=== PATIENT | female | born 1990 | race African-American/Black ===

== ENCOUNTER 2024-06-10 11:51 | Observation (INO) ==
--- NOTE | 2024-06-10 12:13 | Emergency Department Note ---
HPI - Abdominal Pain General Chief Complaint: Abdominal Pain Stated Complaint: Stomach pains and vomiting Time Seen by Provider: 06/10/24 12:13 Source: patient Mode of arrival: walk-in Limitations: no limitations History of Present Illness HPI narrative: This is a 33 year old female patient that presents to the ER with c/o upper abdominal pain with N/V/D today. Patient denies any chest pain, back pain, fever, chills, numbness, tingling, or weakness MD elicited complaint: abdominal pain Pertinent past history: none Onset (ago): hour(s) (2) Pain Consistency: constant Location: RUQ Severity: mild Quality: cramping Radiation: none Migration to: no migration Exacerbating factors: nothing Relieving factors: nothing Associated symptoms: nausea, vomiting and diarrhea Related Data Home Medications Medication Instructions Recorded Confirmed amlodipine 10 mg tablet 10 mg PO DAILY 06/10/24 06/10/24 bupropion HCl 150 mg 24 hr tablet, 150 mg PO DAILY 06/10/24 06/10/24 extended release cyclobenzaprine 5 mg tablet 5 mg PO BID 06/10/24 06/10/24 diclofenac sodium 1 % topical gel 2 g topical DAILY 06/10/24 06/10/24 diclofenac sodium 75 mg 75 mg PO Q12H 06/10/24 06/10/24 tablet,delayed release gabapentin 300 mg capsule 300 mg PO TID 06/10/24 06/10/24 hydrochlorothiazide 25 mg tablet 25 mg PO DAILY 06/10/24 06/10/24 hydroxyzine HCl 25 mg tablet 25 mg PO TID 06/10/24 06/10/24 pantoprazole 40 mg tablet,delayed 40 mg PO DAILY 06/10/24 06/10/24 release venlafaxine 75 mg capsule,extended 75 mg PO DAILY 06/10/24 06/10/24 release 24 hr Allergies Allergy/AdvReac Type Severity Reaction Status Date / Time No Known Drug Allergies Allergy Verified 06/10/24 12:09 Review of Systems Status of ROS 10 or more systems reviewed and unremark able except as noted in history and below Constitutional Denies: fever, chills, change in weight, fatigue or malaise Eyes Denies: change in vision, blurry vision, blind spots or light sensitivity Ears, nose, mouth, and throat Denies: throat pain, neck pain, throat swelling, difficulty swallowing or hoarseness Cardiovascular Denies: chest pain, palpitations, edema or swelling of feet/ankles Respiratory Denies: shortness of breath, cough, wheezing, stridor or pain on inspiration Gastrointestinal Reports: abdominal pain, nausea, vomiting and diarrhea; Denies: coffee grounds in vomit, heartburn or difficulty swallowing Genitourinary Denies: painful urination, urinary frequency, urinary urgency or urinary incontinence Musculoskeletal Denies: back pain, neck pain, extremity pain, extremity swelling or joint pain Integumentary/Breast Denies: rash, itching, redness, skin pain, skin tenderness or skin swelling Neurological Denies: headache, numbness in extremities, weakness in extremities or lack of coordination Psychiatric Denies: anxiety, mood swings, panic attacks, change in sleep pattern or hopelessness Endocrine Denies: excessive urination, excessive thirst or fatigue Hematologic/Lymphatic Denies: easy bruising or easy bleeding Allergic/Immunologic Denies: hives, throat swelling, tongue swelling or facial swelling [facility] Medical History (Updated 06/10/24 @ 12:14 by La Laguna RN) Hypertension Surgical History (Updated 06/10/24 @ 12:14 by La Laguna RN) History of hernia repair Social History Smoking status: current every day smoker Do you use any of these nicotine containing products: vaping products Within the past year, how often did you have a drink containing alcohol: never Within the past year, how often did you have six or more drinks on one occasion: never Score interpretation: A score less than 3 is consistent with normal alcohol consumption. Exam Constitutional: normal general appearance and no apparent distress Vital Signs - 24 hr 06/10/24 11:57 Temperature 98.6 F Pulse Rate 101 H Respiratory Rate 22 Blood Pressure 169/101 Pulse Oximetry 100 Oxygen Delivery Me thod Room Air HENMT: normocephalic, head/scalp atraumatic, hearing grossly normal bilaterally and external ears normal Eyes: PERRL, EOMs intact bilaterally, conjunctivae normal and no scleral icterus Neck/C-Spine: visual inspection normal and trachea midline Lymph: no lymphadenopathy noted Chest: inspection of chest normal Respiratory: breath sounds equal bilaterally, normal respiratory effort, clear to auscultation bilaterally, no wheezes, no rales, no retractions and no use of accessory muscles Cardiovascular: normal heart rate noted, regular rhythm noted, no gallop, no rub, no murmur, no JVD, no clicks, peripheral pulses 2+ throughout and no additional abnormal heart sounds Gastrointestinal: abdomen normal to inspection, abdomen soft to palpation, tender to palpation (mild) and (RUQ), nontender to percussion, nondistended, normoactive bowel sounds, no hepatosplenomegaly, no masses, no pulsatile mass, no ascites and no hernia Genitourinary: no CVA tenderness Back/Pelvis: spine normal to inspection Extremities: normal to inspection, normal to palpation, no tenderness, full ROM, no joint enlargement and no deformity Neurology: no movement abnormality noted, gait normal, speech normal and GCS normal Psychiatry: mental status grossly normal and oriented x3 Skin: skin color normal Course Course Hospital Course: 1350: Due to ongoing abdominal pain, pancreatitis, will admit patient to the hospital for further for evaluation and treatment, VSS, no s/s of acute distress noted Vital Signs Vital signs: Vital Signs Temperature 98.6 F 06/10/24 11:57 Pulse Rate 101 H 06/10/24 11:57 Respiratory Rate 22 06/10/24 11:57 Blood Pressure 169/101 06/10/24 11:57 Pulse Oximetry 100 06/10/24 11:57 Oxygen Delivery Method Room Air 06/10/24 11:57 Temperature 98.6 F 06/10/24 11:57 Pulse Rate 101 H 06/10/24 11:57 Respiratory Rate 22 06/10/24 11:57 Blood Pressure 169/101 06/10/24 11:57 Pulse Oximetry 100 06/10/24 11:57 Oxygen Delivery Method Room Air 06/10/24 11:57 MDM - Abdominal Pain Differential Diagnosis Differential diagnosis: Likely abdominal pain Medical Records Attestation: I reviewed the patient's medical records. Lab Data Attestation: I reviewed the patient's lab results. Labs: Lab Results 06/10/24 06/10/24 Range/Units 11:50 12:15 WBC 7.0 (4.3-9.3) K/uL RBC 3.6 L (4.00-5.50) M/uL Hgb 13.1 (12.5-15.8) gm/dL Hct 38.1 (35.9-46.7) % MCV 106.5 H (81.0-93.7) fl MCH 36.7 H (27.6-32.2) pg MCHC 34.4 (33.1-35.3) g/dl RDW 17.9 H (11.4-14.2) % Plt Count 298 (152-353) K/uL MPV 6.7 L (6.9-10.8) fl Gran % 63.5 (47.8-71.3) % Lymph % (Auto) 28.8 (20.0-43.0) % [place] % (Auto) 5.9 (3.6-9.8) % Eos % (Auto) 1.4 (0.4-2.8) % Baso % (Auto) 0.4 (0.1-0.85) Lymph # (Auto) 2.0 (1.1-3.1) [place] # (Auto) 0.4 L (1.1-3.1) Eos # (Auto) 0.1 (0.0-0.2) Baso # (Auto) 0.0 (0.0-0.1) Absolute Gran (auto) 4.4 (2.3-6.0) Sodium 140 (136-145) mmol/L Potassium 3.6 (3.6-5.2) mmol/L Chloride 103.0 (98-107) mmol/L Carbon Dioxide 28 (21-32) mmol/L Anion Gap 9.0 (4-14) mEq/L BUN 5 L (7-18) mg/dL Creatinine 0.6 (0.6-1.3) mg/dL Estimated GFR 120.7 (>59.9) Glucose 113 H (70-110) mg/dL Calcium 7.9 L (8.5-10.1) mg/dL Total Bilirubin 0.61 (0.0-1.0) mg/dL AST 89 H (15-37) U/L ALT 47 (30-65) U/L Alkaline Phosphatase 68 (50-136) U/L Total Protein 7.1 (6.4-8.2) g/dL Albumin 3.6 (3.4-5.0) g/dL Lipase 324.0 H (16.0-77.0) U/L Urine Color Yellow (STRAW/YELL.) Urine Appearance Clear (CLEAR) Ur Specific [place] 1.020 (1.001-1.035) Urine Protein Negative (NEGATIVE) Urine Glucose (UA) Normal (NORMAL) Urine Ketones Negative (NEGATIVE) Urine Occult Blood Negative (NEG - TRACE) Urine Nitrite Negative (NEGATIVE) Urine Bilirubin Negative (NEGATIVE) Urine Urobilinogen Normal (NORMAL) Ur Leukocyte Esterase Negative (NEGATIVE) Urine Test Negative (Negative) Fluid pH 6.5 (5 - 9) Imaging Data Imaging ordered: CT scan - abdomen Attestation: I have reviewed the pertinent imaging results. Discharge Plan Discharge Patient Disposition: Admitted As Observation Condition: Stable Chief Complaint: Abdominal Pain Clinical Impression: Pancreatitis Prescriptions: No Action amlodipine 10 mg tablet 10 mg PO DAILY bupropion HCl 150 mg tablet extended release 24 hr 150 mg PO DAILY cyclobenzaprine 5 mg tablet 5 mg PO BID diclofenac sodium 1 % gel 2 g TOPICAL DAILY diclofenac sodium 75 mg tablet,delayed release (DR/EC) 75 mg PO Q12H gabapentin 300 mg capsule 300 mg PO TID hydrochlorothiazide 25 mg tablet 25 mg PO DAILY hydroxyzine HCl 25 mg tablet 25 mg PO TID pantoprazole 40 mg tablet,delayed release (DR/EC) 40 mg PO DAILY venlafaxine 75 mg capsule,extended release 24hr 75 mg PO DAILY Print Language: [place]i Referrals: Provider,NO PCP [Primary Care Provider] - Time of Disposition: 13:53
[2024-06-10] MEDS: ONDANSETRON HCL/PF 4 MG/2 ML VIAL INJ STA (12:15)
[2024-06-10 12:22] LABS: Basophils%(Percent) Auto 0.4 (0.1-0.85); Eosinophils#(Absolute)Auto 0.1 (0.0-0.2); Eosinophils%(Percent) Auto 1.4 % (0.4-2.8); Granulocytes % - Auto 63.5 % (47.8-71.3); Granulocytes#(Absolute)- Auto 4.4 (2.3-6.0); Hematocrit 38.1 % (35.9-46.7); Mean Corpuscular Volume 106.5 fl (81.0-93.7); Monocytes #(Absolute)- Auto 0.4 (1.1-3.1); Monocytes %(Percent)- Auto 5.9 % (3.6-9.8); Platelet Count 298 K/uL (152-353)
[2024-06-10 12:25] LABS: Urine Appearance CLEAR (CLEAR); Urine Blood NEGATIVE (NEG - TRACE); Urine Color YELLOW (STRAW/YELL.)
[2024-06-10 12:26] LABS: PH BODY FLUID EXCP BLOOD 6.5 (5 - 9); Urine Urobilinogen Normal (NORMAL)
[2024-06-10 12:42] LABS: Potassium 3.6 mmol/L (3.6-5.2)
[2024-06-10] MEDS: KETOROLAC 30 MG/ML INJ VIAL IVP ONE (13:52)
[2024-06-10] MEDS: 0.9 % SODIUM CHLORIDE 1000 ML 1,000 ML IV SCH (14:29)
[2024-06-10] MEDS: ACETAMINOPHEN 500 MG TABLET PO PRN (16:17)
[2024-06-10] MEDS: MORPHINE SULFATE 4 MG/ML CARTRIDGE IVP PRN (19:09)
[2024-06-10] MEDS: KETOROLAC 30 MG/ML INJ VIAL IM PRN (22:13)
[2024-06-11 03:33] LABS: Basophils%(Percent) Auto 0.4 (0.1-0.85); Eosinophils#(Absolute)Auto 0.1 (0.0-0.2); Eosinophils%(Percent) Auto 0.7 % (0.4-2.8); Granulocytes % - Auto 70.7 % (47.8-71.3); Granulocytes#(Absolute)- Auto 5.6 (2.3-6.0); Hematocrit 33.7 % (35.9-46.7); Mean Corpuscular Volume 107.2 fl (81.0-93.7); Monocytes #(Absolute)- Auto 0.5 (1.1-3.1); Monocytes %(Percent)- Auto 6.4 % (3.6-9.8); Platelet Count 214 K/uL (152-353); White Blood Count 7.9 K/uL (4.3-9.3)
[2024-06-11 03:56] LABS: Potassium 3.8 mmol/L (3.6-5.2)
[2024-06-11] MEDS: GI COCKTAIL 30 ML SOLUTION PO ONE (10:45)
--- NOTE | 2024-06-11 14:35 | Internal Medicine H&P ---
Internal Medicine - H&P: HPI History of Present Illness Chief complaint: acute pancreatitis Narrative: Presented to ER from home w/ less than 12hrs of N/V/D and epigastric pain. ER work-up showed acute pancreatitis. Pt has done well overnight with improvement to the point she tolerated CLD, but not chicken. Pain is well-controlled and she reports nausea is mostly resolved. 1 episode of emesis after lunch. Review of Systems Status of ROS 10 or more systems reviewed and unremark able except as noted in history and below Constitutional Denies: fever, chills, change in weight, fatigue or malaise Eyes Denies: change in vision, blurry vision, blind spots or light sensitivity Ears, nose, mouth, and throat Denies: throat pain, neck pain, throat swelling, difficulty swallowing or hoarseness Cardiovascular Denies: chest pain, palpitations, edema, swelling of feet/ankles or shortness of breath with exertion Respiratory Denies: shortness of breath, cough, wheezing, stridor or pain on inspiration Gastrointestinal Reports: abdominal pain, nausea, vomiting and diarrhea; Denies: coffee grounds in vomit, heartburn or difficulty swallowing Genitourinary Denies: painful urination, urinary frequency, urinary urgency or urinary incontinence Musculoskeletal Denies: back pain, neck pain, extremity pain, extremity swelling or joint pain Integumentary/Breast Denies: rash, itching, redness, skin pain, skin tenderness or skin swelling Neurological Denies: headache, numbness in extremities, weakness in extremities or lack of coordination Psychiatric Denies: anxiety, mood swings, panic attacks, change in sleep pattern or hopelessness Endocrine Denies: excessive urination, excessive thirst or fatigue Hematologic/Lymphatic Denies: easy bruising or easy bleeding Allergic/Immunologic Denies: hives, throat swelling, tongue swelling, facial swelling or wheezing [facility] Medical History (Updated 06/11/24 @ 14:39 by Evan Boyer MD) Hypertension Surgical History (Updated 06/10/24 @ 12:14 by La Laguna RN) History of hernia repair Social History Smoking status: current every day smoker Do you use any of these nicotine containing products: vaping products Within the past year, how often did you have a drink containing alcohol: never Within the past year, how often did you have six or more drinks on one occasion: never Score interpretation: A score less than 3 is consistent with normal alcohol consumption. Problems where you live: no known problems Highest level of school completed/degree received: College Meds Home Medications and Allergies Home Medications Medication Instructions Recorded Confirmed Type amlodipine 10 mg tablet 10 mg PO DAILY 06/10/24 06/10/24 History bupropion HCl 150 mg 24 hr tablet, 150 mg PO DAILY 06/10/24 06/10/24 History extended release cyclobenzaprine 5 mg tablet 5 mg PO BID 06/10/24 06/10/24 History diclofenac sodium 1 % topical gel 2 g topical DAILY 06/10/24 06/10/24 History diclofenac sodium 75 mg 75 mg PO Q12H 06/10/24 06/10/24 History tablet,delayed release gabapentin 300 mg capsule 300 mg PO TID 06/10/24 06/10/24 History hydrochlorothiazide 25 mg tablet 25 mg PO DAILY 06/10/24 06/10/24 History hydroxyzine HCl 25 mg tablet 25 mg PO TID 06/10/24 06/10/24 History pantoprazole 40 mg tablet,delayed 40 mg PO DAILY 06/10/24 06/10/24 History release venlafaxine 75 mg capsule,extended 75 mg PO DAILY 06/10/24 06/10/24 History release 24 hr Allergies Allergy/AdvReac Type Severity Reaction Status Date / Time No Known Drug Allergies Allergy Verified 06/10/24 12:09 Exam Constitutional: normal general appearance, no apparent distress, no limitations and alert Vital Signs - 24 hr 06/10/24 16:00 06/10/24 19:24 06/10/24 23:21 Temperature 98.1 F 99.8 F H 99.2 F Pulse Rate [Radial ] 103 H 86 61 Respiratory Rate 16 16 17 Blood Pressure [Le ft Arm] 124/84 121/73 137/77 Pulse Oximetry 95 97 98 Oxygen Delivery Me thod Room Air Room Air Room Air 06/11/24 03:14 06/11/24 07:30 06/11/24 11:31 Temperature 98.3 F 97.7 F 98.9 F Pulse Rate [Radial ] 62 81 58 L Respiratory Rate 21 18 16 Blood Pressure [Le ft Arm] 133/78 134/84 119/87 Pulse Oximetry 100 99 98 Oxygen Delivery Me thod Room Air Room Air Room Air HENMT: normocephalic, hearing grossly normal bilaterally and external ears normal Eyes: PERRL, EOMs intact bilaterally and conjunctivae normal Neck/C-Spine: visual inspection normal and trachea midline Respiratory: breath sounds equal bilaterally, normal respiratory effort and clear to auscultation bilaterally Cardiovascular: normal heart rate noted, regular rhythm noted and no murmur Gastrointestinal: abdomen normal to inspection, abdomen soft to palpation, tender to palpation (mild) and (epigastric), nondistended and normoactive bowel sounds Genitourinary: no CVA tenderness Back/Pelvis: thoracic spine ROM normal and lumbar spine ROM normal Extremities: normal to inspection, normal to palpation, no tenderness and full ROM Neurology: switchboard troubleshooter II-XII intact, no movement abnormality noted, no focal motor deficit noted and speech normal Psychiatry: mental status grossly normal, oriented x3, thought process normal, cooperative, affect normal, psychomotor activity normal and memory normal Internal Medicine - H&P: Reslt Labs Labs: CBC WBC 7.9 K/uL (4.3-9.3) 06/11/24 03:15 RBC 3.1 M/uL (4.00-5.50) L 06/11/24 03:15 Hgb 11.4 gm/dL (12.5-15.8) L 06/11/24 03:15 Hct 33.7 % (35.9-46.7) L 06/11/24 03:15 MCV 107.2 fl (81.0-93.7) H 06/11/24 03:15 MCH 36.4 pg (27.6-32.2) H 06/11/24 03:15 MCHC 33.9 g/dl (33.1-35.3) 06/11/24 03:15 RDW 18.2 % (11.4-14.2) H 06/11/24 03:15 Plt Count 214 K/uL (152-353) 06/11/24 03:15 MPV 6.9 fl (6.9-10.8) 06/11/24 03:15 Gran % 70.7 % (47.8-71.3) 06/11/24 03:15 Lymph % (Auto) 21.8 % (20.0-43.0) 06/11/24 03:15 [place] % (Auto) 6.4 % (3.6-9.8) 06/11/24 03:15 Eos % (Auto) 0.7 % (0.4-2.8) 06/11/24 03:15 Baso % (Auto) 0.4 (0.1-0.85) 06/11/24 03:15 Lymph # (Auto) 1.7 (1.1-3.1) 06/11/24 03:15 [place] # (Auto) 0.5 (1.1-3.1) L 06/11/24 03:15 Eos # (Auto) 0.1 (0.0-0.2) 06/11/24 03:15 Baso # (Auto) 0.0 (0.0-0.1) 06/11/24 03:15 Absolute Gran (auto) 5.6 (2.3-6.0) 06/11/24 03:15 BMP Sodium 140 mmol/L (136-145) 06/11/24 03:15 Potassium 3.8 mmol/L (3.6-5.2) 06/11/24 03:15 Chloride 104.0 mmol/L (98-107) 06/11/24 03:15 Carbon Dioxide 26 mmol/L (21-32) 06/11/24 03:15 Anion Gap 10.0 mEq/L (4-14) 06/11/24 03:15 BUN 5 mg/dL (7-18) L 06/11/24 03:15 Creatinine 0.7 mg/dL (0.6-1.3) 06/11/24 03:15 Estimated GFR 116.3 (>59.9) 06/11/24 03:15 Glucose 82 mg/dL (70-110) 06/11/24 03:15 Calcium 7.5 mg/dL (8.5-10.1) L 06/11/24 03:15 Total Bilirubin 1.67 mg/dL (0.0-1.0) H 06/11/24 03:15 AST 108 U/L (15-37) H 06/11/24 03:15 ALT 44 U/L (30-65) 06/11/24 03:15 Alkaline Phosphatase 62 U/L (50-136) 06/11/24 03:15 Total Protein 6.1 g/dL (6.4-8.2) L 06/11/24 03:15 Albumin 3.1 g/dL (3.4-5.0) L 06/11/24 03:15 Liver Function Total Bilirubin 1.67 mg/dL (0.0-1.0) H 06/11/24 03:15 AST 108 U/L (15-37) H 06/11/24 03:15 ALT 44 U/L (30-65) 06/11/24 03:15 Alkaline Phosphatase 62 U/L (50-136) 06/11/24 03:15 Total Protein 6.1 g/dL (6.4-8.2) L 06/11/24 03:15 Albumin 3.1 g/dL (3.4-5.0) L 06/11/24 03:15 Urine Urine Color Yellow (STRAW/YELL.) 06/10/24 12:15 Urine Appearance Clear (CLEAR) 06/10/24 12:15 Ur Specific [place] 1.020 (1.001-1.035) 06/10/24 12:15 Urine Protein Negative (NEGATIVE) 06/10/24 12:15 Urine Glucose (UA) Normal (NORMAL) 06/10/24 12:15 Urine Ketones Negative (NEGATIVE) 06/10/24 12:15 Urine Occult Blood Negative (NEG - TRACE) 06/10/24 12:15 Urine Nitrite Negative (NEGATIVE) 06/10/24 12:15 Urine Bilirubin Negative (NEGATIVE) 06/10/24 12:15 Urine Urobilinogen Normal (NORMAL) 06/10/24 12:15 Ur Leukocyte Esterase Negative (NEGATIVE) 06/10/24 12:15 Assessment and Plan Assessment and Plan (1) Acute pancreatitis: Assessment and Plan: slow improvement. Continue current. Qualifiers: Pancreatitis type: unspecified pancreatitis type Acute pancreatitis complication: no infection or necrosis Qualified Code(s): K85.90 - Acute pancreatitis without necrosis or infection, unspecified Code(s): K85.90 - Acute pancreatitis without necrosis or infection, unspecified (2) GERD without esophagitis: Assessment and Plan: continue PPI Code(s): K21.9 - Gastro-esophageal reflux disease without esophagitis (3) Essential (primary) hypertension: Assessment and Plan: continue home meds Code(s): I10 - Essential (primary) hypertension
[2024-06-11] MEDS: ONDANSETRON HCL/PF 4 MG/2 ML VIAL INJ PRN (14:46)
[2024-06-12 05:35] LABS: Basophils%(Percent) Auto 0.5 (0.1-0.85); Eosinophils#(Absolute)Auto 0.3 (0.0-0.2); Eosinophils%(Percent) Auto 3.7 % (0.4-2.8); Granulocytes % - Auto 54.7 % (47.8-71.3); Hematocrit 33.5 % (35.9-46.7); Mean Corpuscular Volume 107.8 fl (81.0-93.7); Monocytes #(Absolute)- Auto 0.4 (1.1-3.1); Monocytes %(Percent)- Auto 6.1 % (3.6-9.8); Platelet Count 190 K/uL (152-353); White Blood Count 7.3 K/uL (4.3-9.3)
[2024-06-12 06:12] LABS: Potassium 3.6 mmol/L (3.6-5.2)
[2024-06-12 08:15] VITALS: RESP 19
[2024-06-12] MEDS: PANTOPRAZOLE SODIUM 40 MG VIAL IVP ONE (10:31)
[2024-06-12] MEDS: GABAPENTIN 300 MG CAPSULE PO SCH (11:49)
[2024-06-12] MEDS: hydrOXYzine HCL 25 MG TABLET PO SCH (11:49)
[2024-06-12] MEDS: AMLODIPINE BESYLATE 5 MG TABLET PO SCH (11:49)
[2024-06-12] MEDS: VENLAFAXINE HCL 37.5 MG CAP.ER.24H PO SCH (11:50)
[2024-06-12 12:00] VITALS: BP 144/81; PULSE 54; TEMP 98.8
--- NOTE | 2024-06-12 13:52 | Discharge Summary ---
DS: Providers Provider Date of admission: 06/10/24 14:04 Primary care physician: NO PCP Provider DS: Diagnosis Discharge Diagnosis (1) Acute pancreatitis: Assessment and plan: hydrate with caution 200 ml per hour pain control IV morphine, tylenol and toradol Qualifiers: Acute pancreatitis complication: no infection or necrosis Pancreatitis type: unspecified pancreatitis type Qualified Code(s): K85.90 - Acute pancreatitis without necrosis or infection, unspecified (2) Dehydration: Assessment and plan: cautious hydration (3) Alcohol abuse: Assessment and plan: declines outapatient and inpatient rehab and states she can stop her daily 3 margaritas on her own (4) Essential (primary) hypertension: Assessment and plan: resume home medication once tolerated oral today (5) Anxiety with depression: (6) GERD without esophagitis: Assessment and plan: protonix IV bid until she could tolerate oral medications (7) Hyperbilirubinemia: Assessment and plan: hydrate with caution (8) Anemia: Assessment and plan: continue to monitor and needs B-12, Thiamine, Folate vitamins otc once she is discharged Qualifiers: Anemia type: other cause Other causes of anemia: nutritional, other megaloblastic Qualified Code(s): 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, not elsewhere classified (9) Hypoalbuminemia: Assessment and plan: hydrate with caution work on protein in patients diet (10) Fatty liver, alcoholic: (11) Nausea & vomiting: Qualifiers: Vomiting type: bilious vomiting Qualified Code(s): R11.14 - Bilious vomiting Plan gallbadder us negative still needs HIDA scan as an outpatient and Take BP journal to her PCP that she chooses in the hospital today on discharge for further BP manegement as needed Needs GI medicine vs surgical referral per test results and patient PCP decision and they can readdress rehab and other medication interventions available to help the patient stop drinking and other testing as needed and discuss improving the patients diet. DS: Summary Hospital Course Hospital Course: 1350: Due to ongoing abdominal pain, pancreatitis, will admit patient to the hospital for further for evaluation and treatment, VSS, no s/s of acute distress noted patient unable to tolerate diet until day of discharge despite an attempt on 06/11/2024 that caused severe pain and nausea with vomiting for the patient patient afebrile in the hospital and moving around better on day of discharge pain still noted on discharge but a 2-3 from a 8-10 on admit and no further emesis and nausea controlled with medication Status at Discharge Functional status at discharge: independent ambulation Overall status at discharge: patient is back to baseline Time Spent with Patient Time attestation: Total time spent providing and/or coordinating discharge services: Time spent: greater than 30 minutes Exam Constitutional: normal general appearance, no apparent distress, abnormal body habitus (obese), no limitations and alert Vital Signs - 24 hr 06/11/24 16:00 06/11/24 19:47 06/11/24 23:36 Temperature 98.8 F 98.4 F 98.9 F Pulse Rate [Radial ] 53 L 48 L 60 Respiratory Rate 18 19 17 Blood Pressure Blood Pressure [Le ft Arm] 114/74 144/83 154/89 Pulse Oximetry 96 100 97 Oxygen Delivery Wa thod Room Air Room Air Room Air 06/12/24 03:48 06/12/24 08:00 06/12/24 11:49 Temperature 98.6 F 98.5 F Pulse Rate [Radial ] 50 L 66 Respiratory Rate 18 19 Blood Pressure 146/91 Blood Pressure [Le ft Arm] 139/83 146/91 Pulse Oximetry 97 97 Oxygen Delivery Wa thod Room Air Room Air 06/12/24 11:58 Temperature 98.8 F Pulse Rate [Radial ] 54 L Respiratory Rate 19 Blood Pressure Blood Pressure [Le ft Arm] 144/81 Pulse Oximetry 97 Oxygen Delivery Wa thod Room Air HENMT: normocephalic, head/scalp atraumatic, hearing grossly normal bilaterally, external ears normal, oropharynx normal, dentition normal and gingiva normal Eyes: PERRL, EOMs intact bilaterally, conjunctivae normal, no scleral icterus and papilledema noted Neck/C-Spine: visual inspection normal, trachea midline, cervical spine nontender, cervical full ROM noted, supple, no meningeal signs, thyroid normal and no carotid bruits Lymph: no lymphadenopathy noted and no lymphedema noted Chest: inspection of chest normal and palpation of chest normal Respiratory: breath sounds equal bilaterally, normal respiratory effort, clear to auscultation bilaterally, no wheezes, no retractions and no use of accessory muscles Cardiovascular: heart rate abnormal (bradycardic), regular rhythm noted, no gallop, no rub, no murmur, no JVD, no clicks, peripheral pulses 2+ throughout, no bruits noted and no additional abnormal heart sounds Gastrointestinal: abdomen normal to inspection, abdomen soft to palpation, tender to palpation (mild) and (epigastric), nontender to percussion, nondistended, normoactive bowel sounds, hepatosplenomegaly noted, no masses, no pulsatile mass and no ascites Genitourinary: no CVA tenderness, bladder normal to palpation and external appearance normal Back/Pelvis: no thoracic spine tenderness, no lumbar spine tenderness, thoracic spine ROM normal, lumbar spine ROM normal, no paraspinal muscle tenderness noted and straight leg raise negative bilaterally Extremities: normal to inspection, normal to palpation, no tenderness, full ROM and no joint enlargement Neurology: range feeder II-XII intact, no movement abnormality noted, no focal motor deficit noted, no sensory deficits noted, deep tendon reflexes 2+ bilaterally, gait abnormality noted (on discharge normal ) (unable to access), speech normal and coordination normal Psychiatry: mental status grossly normal, oriented x3, thought process normal, cooperative, affect normal, psychomotor activity normal and memory normal Feel stressed/tense/nervous/anxious/difficulty sleeping: to some extent Life stressor details: illness Skin: skin color normal, no rash, no lesions, no ecchymosis noted, no wounds, no lacerations, skin turgor normal, no jaundice, no petechiae, no mottling, nails normal and no alopecia DS: Data Data Completed and Pending Pending studies at discharge: none needs HIDA scan, as an outpatient and BP Journal Labs on day of discharge: Labs from last 24 hours 06/12/24 04:45 WBC 7.3 RBC 3.1 L Hgb 11.4 L Hct 33.5 L MCV 107.8 H MCH 36.8 H MCHC 34.1 RDW 17.7 H Plt Count 190 MPV 7.9 Gran % 54.7 Lymph % (Auto) 35.0 Starr % (Auto) 6.1 Eos % (Auto) 3.7 H Baso % (Auto) 0.5 Lymph # (Auto) 2.5 Starr # (Auto) 0.4 L Eos # (Auto) 0.3 H Baso # (Auto) 0.0 Absolute Gran (auto) 4.0 Sodium 138 Potassium 3.6 Chloride 105.0 Carbon Dioxide 24 Anion Gap 9.0 BUN 4 L Creatinine 0.6 Estimated GFR 120.7 Glucose 95 Calcium 7.8 L Total Bilirubin 1.47 H AST 74 H ALT 40 Alkaline Phosphatase 78 Total Protein 6.4 Albumin 3.0 L Triglycerides 82 Cholesterol 105 L LDL Cholesterol 45.0 VLDL Cholesterol, Calc 16 HDL Cholesterol 47 LDL/HDL Ratio 1.0 Cholesterol/HDL Ratio [address] scan - abdomen: Radiologist's impression: CT ABDOMEN AND PELVIS WITH CONTRAST HISTORY: Abd pain; COMPARISON: None TECHNIQUE: Axial images were acquired of the abdomen and pelvis with IV contrast. Sagittal and coronal reformatted images were provided. All images were reviewed in a variety of windows and levels. RADIATION REDUCTION TECHNIQUE: Automated exposure control, adjustment of the mA and/or kV according to patient size, or iterative reconstruction techniques were used. FINDINGS: LOWER THORAX: The visualized lower lung zones are clear. The heart size is within normal limits. There is no evidence of a pericardial effusion. LIVER: Mild hepatic steatosis.. No evidence of intrahepatic or extrahepatic duct dilation. GALLBLADDER: The gallbladder is unremarkable. SPLEEN: The spleen enhances homogenously and is unremarkable. PANCREAS: Peripancreatic fluid and induration surrounding the head and proximal body of the pancreas. ADRENAL GLANDS: The adrenal glands enhance homogenously and are unremarkable. : The kidneys enhance homogenously. Their collecting system is of normal caliber. URINARY BLADDER: The urinary bladder is unremarkable. There are no soft tissue masses seen in the urinary bladder. VESSELS: The abdominal aorta is normal in size without evidence of aneurysm or dissection. The celiac artery, superior mesenteric artery, [place] renal arteries, and inferior mesenteric artery are patent. GI: The stomach and small bowel is unremarkable. There are no inflammatory changes seen in the right lower quadrant to suggest secondary signs of acute appendicitis. The appendix is not definitively identified. LYMPHNODES AND MESENTERY: There is no evidence of retroperitoneal lymphadenopathy. The uterus is present. There is a trace amount of free fluid within the pelvis. BONES: The visualized bones are intact. There are no concerning lytic or blastic lesions identified. IMPRESSION: Peripancreatic fluid and induration surrounding the head and proximal body of the pancreas consistent with acute pancreatitis. Clinical and laboratory correlation advised. Mild hepatic steatosis. US - abdomen: Radiologist's impression: US GALLBLADDER HISTORY: Abd pain; COMPARISON: None available. TECHNIQUE: Multiple haney scale and color flow Doppler images of the right upper quadrant were obtained. FINDINGS: The visualized liver exhibits increased echogenicity consistent with fatty infiltration.. The gallbladder demonstrates no evidence for intraluminal gallstones. The common bile duct measures within normal limits for age at 4.4 mm. No pericholecystic fluid or gallbladder wall thickening is seen. By report, Tee's sign is reportedly sonographically negative. The right kidney measures 9.1 x 2.8 x 4.1 cm. There is no evidence of hydronephrosis. The pancreas is poorly visualized. IMPRESSION: Mild fatty infiltration of the liver. No evidence of cholelithiasis.. No convincing sonographic evidence for acute cholecystitis. Discharge Plan Discharge Disposition: Home, Self-Care Condition: Stable Discharge Medications: New losartan 50 mg tablet 50 mg PO DAILY Qty: 30 0RF ondansetron 4 mg tablet,disintegrating 4 mg PO Q8H PRN (Reason: nausea and vomiting) Qty: 10 0RF Continued amlodipine 10 mg tablet 10 mg PO DAILY bupropion HCl 150 mg tablet extended release 24 hr 150 mg PO DAILY diclofenac sodium 1 % gel 2 g TOPICAL QID PRN (Reason: pain) gabapentin 300 mg capsule 300 mg PO TID hydroxyzine HCl 25 mg tablet 25 mg PO TID PRN (Reason: anxiety) pantoprazole 40 mg tablet,delayed release (DR/EC) 40 mg PO DAILY venlafaxine 75 mg capsule,extended release 24hr 75 mg PO DAILY Discontinued cyclobenzaprine 5 mg tablet 5 mg PO BID PRN (Reason: muscle spasm) diclofenac sodium 75 mg tablet,delayed release (DR/EC) 75 mg PO Q12H hydrochlorothiazide 25 mg tablet 25 mg PO DAILY Discharge Orders: Discharge Order (Routine); Ordered 06/12/24 Ordered By: Idania Cadena Activity: increase activity as tolerated Diet: low fat, low cholesterol Diet Detail: gallbladder diet bland and small frequent meals Interventions: MED/SURG & ICU Observation Charge Sheet Last Done: 06/12/24 06:07 Activity Restrictions/Additional Instructions: gallbadder us negative still needs HIDA scan as an outpatient and Take BP journal to her PCP that she chooses in the hospital today on discharge for further BP manegement as needed Needs GI medicine vs surgical referral per test results and patient PCP decision and they can readdress rehab and other medication interventions available to help the patient stop drinking and other testing as needed and discuss improving the patients diet. Forms: Portal/Health Info Access Inst Follow-Ups: Provider,NO PCP [Primary Care Provider] - (PATIENT WAS GIVEN A LIST OF PROVIDERS AND STATES SHE WILL PICK ONE AND MAKE A FOLLOW UP APPOINTMENT)
[2024-06-13] MEDS ORDERED: PANTOPRAZOLE SODIUM 40 MG TABLET.DR PO SCH (09:00)
== END 2024-06-12 15:15 | disposition home or self-care (01) ==
LOC: MS 11:51 → ED 11:51 → MS 14:19
PROVIDERS: ADMIT Family Medicine; ATTEND Family Medicine
DX: Z72.0 Tobacco use; K21.9 Gastro-esophageal reflux disease without esophagitis; E88.09 Other disorders of plasma-protein metabolism, not elsewhere classified; F10.10 Alcohol abuse, uncomplicated; F41.8 Other specified anxiety disorders; E86.0 Dehydration; R19.7 Diarrhea, unspecified; R10.13 Epigastric pain; R11.14 Bilious vomiting; K85.90 Acute pancreatitis without necrosis or infection, unspecified; R11.2 Nausea with vomiting, unspecified; K70.0 Alcoholic fatty liver; E80.6 Other disorders of bilirubin metabolism; D53.1 Other megaloblastic anemias, not elsewhere classified; I10 Essential (primary) hypertension